=== PATIENT | male | born 2005 | race Caucasian/White ===

== ENCOUNTER 2024-11-15 10:57 | Emergency (ER) | payer BC, OTHER ==
[2024-11-15] MEDS ORDERED: Ondansetron PF 4 MG/2 ML Vial ONE (11:50)
[2024-11-15 12:07] LABS: #Basophils 0.03 10x3/uL (0.0-0.2); #Eosinophils 0.08 10x3/uL (0.0-0.5); #Monocytes 0.99 10x3/uL (0.0-1.1); #Neutrophils 16.22 10x3/uL (1.5-8.4); %Basophils 0.2 % (0.0-2.0); %Eosinophils 0.4 % (0.0-6.0); %Lymphocytes 2.5 % (18.0-47.0); %Monocytes 5.5 % (0.0-10.0); %Neutrophils 91.0 % (40.0-75.0); Hematocrit 40.4 % (38.8-50.0); Hemoglobin 13.7 g/dL (13.5-17.5); Mean Corpuscular Hemoglobin 30.0 pg (27.0-33.0); Mean Corpuscular Volume 88.6 fL (81.2-95.1); Platelet Count 441 10x3/uL (150-450); Red Blood Cell (RBC) Count 4.56 10x6/uL (4.32-5.72); White Blood Cell (WBC) Count 17.85 10x3/uL (3.5-10.5)
[2024-11-15 12:26] LABS: ALT (SGPT) 8 U/L (Less than 45); AST (SGOT) 16 U/L (11-34); Albumin 4.4 g/dL (3.1-4.5); Alkaline Phosphatase 73 U/L (40-110); Anion Gap 17 mmol/L (10-20); BUN (Urea Nitrogen) 13 mg/dL (8.9-20.6); Bilirubin, Total 0.5 mg/dL (0.3-1.2); Calc. Creatinine Clearance 0 mL/min (70-130); Calcium 9.4 mg/dL (7.8-10.44); Carbon Dioxide 23 mmol/L (22-29); Chloride 103 mmol/L (98-107); Globulin 3.3 g/dL (2.4-3.5); Glucose 102 mg/dL (70-105); Lipase 10 U/L (8-78); Potassium 4.0 mmol/L (3.5-5.1); Sodium 139 mmol/L (136-145)
[2024-11-15] MEDS ORDERED: Bupivacaine/Epinephrine 0.25% 30 ML VIAL ONE (12:42)
[2024-11-15] MEDS ORDERED: PROPOFOL 20 ML ONE (13:35)
[2024-11-15] MEDS ORDERED: Rocuronium Bromide 10 MG/ML (10ML VIAL) ONE (13:35)
[2024-11-15] MEDS ORDERED: Ketorolac Tromethamine 30 MG (1 mL) VIAL ONE (13:54)
[2024-11-15] MEDS ORDERED: Bupivacaine HCl 0.5%/Epinephrine 1:200,000/PF 30 ml Vial ONE (14:02)
[2024-11-15] MEDS ORDERED: SUGAMMADEX SODIUM 200 MG/2 ML VIAL ONE (14:15)
[2024-11-15] MEDS ORDERED: HYDROcodone/Acetaminophen 5/325 mg Tablet ONE (15:22)
== END 2024-11-15 13:46 | disposition admitted as inpatient to this hospital (09) ==
LOC: CSHERS 10:57
PROC: 0DTJ4ZZ Resection of Appendix, Percutaneous Endoscopic Approach (ICD-10-PCS; principal; 2024-11-15)
DX: K35.80 Unspecified acute appendicitis (principal)
CPT/HCPCS: 74176; 80053; 83690; 85025; 88304; 96374; 96375; A4649; J1885; J2270; J2543; J2704; J3010